=== PATIENT | female | born 1955 | race Caucasian/White ===

== ENCOUNTER 2016-09-06 09:32 | Day surgery (SDC) | payer OTHER ==
[2016-09-06] VITALS (9 sets, daily range): BP systolic 114–146; BP diastolic 71–87; PULSE 54–66; RESP 8–18; O2SAT 94–100
[~2016-09-06] VITALS: Ht 157.5 cm; Wt 65.1 kg
[~2016-09-06 09:32] MED LIST: ALPR0.254 PO; ESTR1TAB24 PO; NORE5TAB PO
[2016-09-06] MEDS ORDERED: fentaNYL-PF 50 mCg/mL 2 mL Inj ONE (09:33)
[2016-09-06] MEDS: Lactated Ringer's 1,000 ML IV SCH ×2 (09:55→10:50)
--- NOTE | 2016-09-06 10:43 | PCM.HPANE ---
Patient Data Date of Service: Sep 06, 2016 Surgeon Admitting Provider: Attending Provider:Juan Caban MD Primary Care Physician:Carmelo Queen MD Other Provider: Reason for Visit Postmenopausal Bleeding Ht/WT & BMI Height (Feet): 5 Height (Inches): 2.00 Weight (Kilograms): 65.1 Body Mass Index 26.00 Allergies Coded Allergies: No Known Allergies (Unverified , 09/04/16) Past Anesthesia History Anesthesia History: Denies:: Abnormal Airway, Anesthesia Reactions, Difficult Intubation, Fam Anesthesia Reaction Diabetes History Hx Diabetes?: No MRSA MRSA: No Medications Hypertension Medication: No Home Meds Incl Beta Sandra: No Reported Medications Norethindrone Acetate 5 Mg Tablet5 Mg PO DAILY 09/04/16 Estradiol 1 Mg Tablet1 Mg PO DAILY Ref 0 09/04/16 Alprazolam 0.25 Mg Tablet0.25 Mg PO TID PRN For Anxiety Ref 0 09/04/16 History History of ENT Problems?: No HEENT History: Denies:: Abnormal Airway Cataracts Difficult Intubation Dysphagia Glaucoma Hearing Problem Sinus Problem TMJ Hx of Heart Problems?: No Cardiovascular History: Denies:: AICD Abdominal Aortic Aneurism Atrial Fibrillation Edema Heart Murmur Hypertension Irregular Heartbeat Pacemaker Peripheral Vascular Hx of Respiratory Problem?: No Respiratory History: Denies:: Asthma COPD Emphysema Oxygen Administration Pneumonia Tuberculosis Use of C-PAP Machine Use of Inhalers / NEBS Hx Neurologic Problems?: No Neurological History: Denies:: CVA Dizziness Headaches Multiple Sclerosis Parkinson's Disease Seizures TIA Hx of GI Problems?: No Gastrointestinal History: Denies:: Cirrhosis Gall Bladder Disease Gastroesphageal Reflux Gastrointestinal Bleeding Heartburn Hepatitis Hiatal Hernia Liver Disease Rectal Bleeding Hx of Problems?: No Genitourinary History: Denies:: Kidney Stones Urinary Tract Infection Female Hx: Denies:: Currently Problems with Breasts? Hx Musculoskeletal Problems?: No Musculoskeletal History: Denies:: Back Injury Fibromyalgia Joint Replacement Musculoskeletal Trauma Myasthenia Gravis Osteoarthritis Rheumatoid Arthritis Systemic Lupus Hx of Psycho/Social Problems?: No Psycho Social History: Denies:: Anxiety Hx Depression Hx Surgeries?: No (no prior ) Hx Any Other Health Problems?: No Other History: Denies:: Cancer Thyroid Disease History Blood Transfusions: Positive for:: Accept Blood Products? Denies:: Blood Transfusions Hx Diabetes: No Hx Alcohol Use: YesAlcoholic Drinks Per Day: 1-2 glasses wine dailyHx Substance Use: Yes (occasional marijuana)Have You Smoked inLast 12 mo: Yes (7 cigarettes daily) Stop/Bang S-Snoring: Do You Snore Loudly: Yes T-Tired: feel tired, fatigued: No O-Obsered: Observed not breath: No P-Blood Pressure: treated: No B- Body Mass Index > 35 kg/m2: No A- Age over 50: Yes N- Neck Large Circumference: No G- Gender Male: No JUANY Total Score: 2 JUANY Risk Assessment: Low Risk, <3 Yes Risk Assessment Category Category 1A: Patient has history of documented sleep apnea, and HAS NOT received any narcotic, sedative or anesthesia administration during this stay. Category 1B: Patient has history of documented sleep apnea, and HAS received any narcotic , sedative or anesthesia administration during this stay Category 2: Patient has SUSPECTED Obstructive Sleep Apnea, and HAS received any narcotic , sedative or anesthesia administration during this stay. Category 3: Patient has SUSPECTED Obstructive Sleep Apnea and HAS NOT received narcotic, sedative or anesthesia administration during this stay. Category 4: Outpatient in Procedural Areas with known sleep apnea or who screen positive for High Risk via the STOP/BANG questionnaire. Exam Exam Vital Signs Vital Signs Date Time Temp Pulse Resp B/P Pulse Ox O2 Delivery O2 Flow Rate FiO2 09/06/16 10:16 35.9 66 18 141/71 99 Room Air General Appearance: Alert, Oriented X3, Cooperative, No Acute Distress HEENT/AIRWAY: MP 2 Lungs: Clear to Auscultation, Normal Air Movement Heart: Exam Unremarkable, Regular Rate/Rhythm, No Murmurs/Rubs/Gallops Meds/Labs/Diagnostics Admission Meds Current Medications Lactated Ringer's (Lr) 1,000 ml @ 120 mls/hr [id number] IV Last administered on t 09:55; Start 09/06/16 at 05:00; Stop 09/06/16 at 13:19 Plan Impression Patient chart reviewed, patient interviewed and anesthestic plan with risks, benefits, and alternatives discussed, and informed consent obtained. NPO Status: water 0700 ASA Physical Status: ASA2 Mod Systemic Disease Anesthetic Plan: GA Bene/Risks/Altern/Consents: Yes HP Complete Prior to Induction: Yes Daniele Peng MD Sep 06, 2016 10:43
[2016-09-06] MEDS ORDERED: Lactated Ringer's 500 ML IV PRN (11:14)
[2016-09-06] MEDS ORDERED: Lactated Ringer's 1,000 ML IV SCH (11:14)
[2016-09-06] MEDS ORDERED: hydrALAZINE 20 mg/mL Inj IVPUSH PRN (11:15)
[2016-09-06] MEDS ORDERED: EPHEDrine Sulfate 50 mg/mL Inj IVPUSH PRN (11:15)
[2016-09-06] MEDS ORDERED: Ondansetron 2 mg/mL 2 mL Inj IVPUSH PRN ×2 (11:15→11:45)
[2016-09-06] MEDS ORDERED: Atropine 0.4 mg/mL Inj IVPUSH PRN (11:15)
[2016-09-06] MEDS ORDERED: HYDROmorphone 1 mg/mL Inj IVPUSH PRN (11:15)
[2016-09-06] MEDS ORDERED: MetoCLOpramide 5 mg/mL 2 mL Inj IVPUSH PRN ×2 (11:15→11:45)
[2016-09-06] MEDS ORDERED: Phenylephrine 10,000 mCg/mL Inj IVPUSH PRN (11:15)
[2016-09-06] MEDS ORDERED: Labetalol 5 mg/mL 4 mL Inj IV PRN (11:15)
[2016-09-06] MEDS ORDERED: fentaNYL-PF 50 mCg/mL 2 mL Inj IVPUSH PRN (11:15)
--- NOTE | 2016-09-06 11:44 | PCM.ANEP1 ---
Post Anesthesia Phase 1 PACU Phase 1 Assessment Date of Service: Sep 06, 2016 Vital Signs 37.3 114/72 59 8 94% RA Anesthetic Administered: GA Level of Alertness: Sleepy, easy to arouse DOMINIQUE's with Equal Strength: Yes Pain: No Nausea or Vomiting: No Oxygen Delivery: Room Air Lungs: Clear to Auscultation, Normal Air Movement Daniele Peng MD Sep 06, 2016 11:44
[2016-09-06] MEDS ORDERED: HYDROcodone-APAP 5-325 mg Tablet PO PRN (11:45)
--- NOTE | 2016-09-06 11:47 | PCM.SURGOP ---
Surgical Operative Report Date of Service: Sep 06, 2016 Pre Operative Diagnosis Postmenopausal bleeding Post Operative Diagnosis Postmenopausal bleeding Endometrial polyps Procedure: 1. Diagnostic hysteroscopy with dilation and curettage using the MyoSure Device Surgeon and Childcare Worker: Surgeon: Juan Caban MD Assistants: None Indication for Procedure 60 y/o on HRT with persistent postmenopausal bleeding. Findings: Hysteroscopic findings showing a fairly atrophic appearing endometrial cavity. There was a very small subcentimeter polyp in the left cornual region and along the posterior wall of the endometrial cavity. Normal appearing cervix and endocervical canal. Procedure Details The patient was taken to the operating room where her general anesthesia was obtained without difficulty. An appropriate time out was taken. She was placed in a lithotomy position in the [facility] an acute care hospital and prepared and draped in the normal sterile fashion. A speculum was inserted into the patient' s vagina. The cervix was identified and grasped with a single-tooth tenaculum. The cervix was dilated using Hegar cervical dilators. The Myosure hysteroscope was then inserted into the endometrial cavity and distended with normal saline. The above noted findings were appreciated. The Myosure device was then inserted and the endometrial cavity was curetted. The Myosure device was then removed and sharp endometrial curettings were obtained separately. All instruments were then removed from the patient's vagina. All instrument and sponge counts were correct times two at the end of the procedure and the patient was taken to the recovery room awake and in good condition. Complications There were no periprocedural complications identified. Surgical Specimen Removed: Yes Specimen sent to Pathology: Yes Surgical Specimen description: 1. Myosure endometrial curettings 2. Sharp endometrial curettings Anesthetic Plan: GA Grafts, Implants: None Output, Estimated Blood Loss: 25 Blood Administration during carpenter: No Catheters: None Post Operative Plan Discharge home when awake and stable. Juan Caban MD Sep 06, 2016 11:47
--- NOTE | 2016-09-06 11:49 | PCM.DIGYN ---
Surgical Discharge Instruction Dates of Hospitalization Date of Hospital Admission September 06, 2016 Providers Admitting Physician: Primary Care Physician: Carmelo Queen MD Attending Physician: Juan Caban MD Diagnosis at Time of Discharge Diagnosis at time of discharge postmenopausal bleeding Post-operative diagnosis postmenopausal bleeding Problems: Diet Discharge Diet: No restrictions Activity Discharge Activity-General: No restrictions, Try not to overdue Dressing and Incisional Care Hygiene: May shower, NO bathtub, hot tub or whirlpool (until vaginal bleeding stops) Additional Instructions Discharge Instructions Take Ibuprofen 600 mg every 6 hours as needed for pain and cramping. Follow Up Plan Follow-up appointment: Weeks (2) Call your provider for: Fever, Chills, Shortness of breath, Heavy vaginal bleeding, Increasing pain HARRISON TORIBIO DO Sep 06, 2016 11:49
--- NOTE | 2016-09-06 14:40 | PCM.ANEP2 ---
Post Anesthesia Evaluation ASA/CMS Post Anesthesia Date of Service: Sep 06, 2016 VS in Patient's Normal Range?: Yes Resp Stable; Airway Patent?: Yes CV Function & Hydration Stable: Yes Mental Status Recovered?: Yes Pain control Satisfactory?: Yes N/V Control Satisfactory?: Yes Daniele Peng MD Sep 06, 2016 14:40
--- NOTE | 2016-09-09 12:35 | PATH ---
SURGICAL PATHOLOGY Attending Physician:Juan Caban, CASE STATUS: Signed Out PATIENT NAME: DENISHA ZUÑIGA PID: [id number] : 1955 DATE COLLECTED:09/06/2016 20:28 SPECIMEN: 1: Endometrium, Curettage 2: Endometrium, Curettage CLINICAL HISTORY: POST MENOPAUSAL BLEEDING 1). SHARP CURETTINGS 2). MYOSURE CURETTINGS FINAL DIAGNOSIS: 1.SPECIMEN DESIGNATED SHARP CURETTINGS: MULTIPLE FRAGMENTS OF ENDOMETRIUM CONSISTENT WITH BENIGN ENDOMETRIAL POLYP WITH STROMAL CHANGES SUGGESTIVE OF EXOGENOUS HORMONE EFFECT. Negative for atypia and malignancy. 2.SPECIMEN DESIGNATED MYOSURE CURETTINGS: FRAGMENTS OF MYOMETRIUM WITH ASSOCIATED ATROPHIC-APPEARING ENDOMETRIUM WITH STROMAL CHANGES SUGGESTIVE OF EXOGENOUS HORMONE EFFECT. TISSUE FRAGMENTS CONSISTENT WITH BENIGN ENDOMETRIAL POLYP. Negative for atypia. ICD10 code N84.0 GROSS DESCRIPTION: The specimen is received in two formalin filled containers labeled with the patient's name. 1). The specimen is sublabeled "sharp curettings" consists of approximately a 1.5 cc aggregates of tissue in mucoid material which is filtered and entirely submitted in cassette 1A. 2). The specimen is sublabeled "myosure curetting" and consists of multiple portions of light aragon lin tissue which aggregate to 2.0 x 2.0 x 0.3 CM. The specimen is filtered and entirely submitted in cassette 2A. 09/06/2016 [facility] MICRO DESCRIPTION: See diagnosis. ICD-9 CODES: CPT CODES: 1: 03950 2: 15686 Electronically Signed Out Leonidas Neely MD [facility] [address], [place] [address] Technical component performed at [facility], [address], [address]
== END 2016-09-06 23:59 | disposition home or self-care (01) ==
LOC: SAS 09:32
PROVIDERS: ATTEND Obstetrics & Gynecology
DX: N95.0 Postmenopausal bleeding (principal); N84.0 Polyp of corpus uteri; F17.210 Nicotine dependence, cigarettes, uncomplicated; Z79.899 Other long term (current) drug therapy